=== PATIENT | female | born 1990 | race Caucasian/White ===

== ENCOUNTER 2025-01-08 05:42 | Emergency (ER) | payer SELFPAY ==
[~2025-01-08] VITALS: Ht 162.6 cm; Wt 82.0 kg
[2025-01-08 05:43] VITALS: O2SAT 100
[2025-01-08 06:35] LABS: CREATININE 0.8 mg/dL (0.6-1.0); UREA NITROGEN BLOOD 10 mg/dL (9-23)
[2025-01-08 06:37] LABS: ASPARTATE AMINOTRANSFERASE 47 IU/L (<34)
[2025-01-08 06:38] LABS: BASOPHILS % 0.5 % (0.0-2.0); BILIRUBIN DIRECT 0.1 mg/dL (<=3.0); BILIRUBIN TOTAL 0.4 mg/dL (0.1-1.0); EOSINOPHILS % 0.5 % (0.0-5.0); HEMATOCRIT. 40.5 % (36.0-48.0); HEMOGLOBIN. 13.7 g/dL (12.0-16.0); LYMPHOCYTES % 18.3 % (20.0-50.0); MEAN PLATELET VOLUME 7.7 fl (7.4-10.4); MONOCYTES % 3.8 % (2.0-8.0); NEUTROPHILS % 76.9 % (40.0-76.0); PLATELET 336 x1000/uL (130-400); PROTEIN TOTAL 7.2 g/dL (6.0-8.3); RED BLOOD CELL COUNT 4.02 mill/uL (4.2-5.4); RED CELL DISTRIBUTION WIDTH 12.7 % (11.6-14.6)
[2025-01-08] MEDS: SODIUM CHLORIDE 0.9% 1,000 ML IV ONE (08:01)
[2025-01-08 08:04] VITALS: TEMP 37.3
[2025-01-08 12:05] VITALS: BP 114/78; PULSE 79; RESP 15; O2SAT 99
== END 2025-01-08 12:09 | disposition home or self-care (01) ==
LOC: ER 05:42 → CMPBEDREQ 12:22
DX: F10.129 Alcohol abuse with intoxication, unspecified (principal); Z79.899 Other long term (current) drug therapy; Y90.7 Blood alcohol level of 200-239 mg/100 ml
CPT/HCPCS: 80076; 80048; 80320; 82140; 83690; 83735; 85025; 36415; 96360; 96361; 99285; J7030; Z7610; G0480

== ENCOUNTER 2025-01-17 04:25 | Inpatient (IN) | payer SELFPAY ==
[~2025-01-17] VITALS: Ht 160 cm; Wt 91.0 kg
[2025-01-17 04:29] VITALS: O2SAT 98
[2025-01-17 06:10] LABS: BASOPHILS % 0.6 % (0.0-2.0); EOSINOPHILS % 1.8 % (0.0-5.0); HEMATOCRIT. 40.3 % (36.0-48.0); HEMOGLOBIN. 13.6 g/dL (12.0-16.0); LYMPHOCYTES % 35.8 % (20.0-50.0); MEAN PLATELET VOLUME 7.8 fl (7.4-10.4); MONOCYTES % 8.7 % (2.0-8.0); NEUTROPHILS % 53.1 % (40.0-76.0); PLATELET 358 x1000/uL (130-400); RED BLOOD CELL COUNT 4.03 mill/uL (4.2-5.4); RED CELL DISTRIBUTION WIDTH 12.9 % (11.6-14.6)
[2025-01-17 06:20] LABS: CREATININE 0.7 mg/dL (0.6-1.0); UREA NITROGEN BLOOD 8 mg/dL (9-23)
[2025-01-17 06:22] LABS: HCG SCREEN NEGATIVE
[2025-01-17 07:17] LABS: *AMPHETAMINES SCREEN URINE PRESUMPTIVE POSITIVE (NEGATIVE)
[2025-01-17 07:18] LABS: *BARBITURATES SCREEN URINE NEGATIVE (NEGATIVE); *BENZODIAZEPINES SCREEN URINE NEGATIVE (NEGATIVE); *COCAINE SCREEN URINE NEGATIVE (NEGATIVE); CANNABINOID URINE SCREEN PRESUMPTIVE POSITIVE (NEGATIVE); ECSTASY MDMA SCREEN URINE NEGATIVE (NEGATIVE); METHADONE URINE SCREEN NEGATIVE (NEGATIVE); OPIATES URINE SCREEN NEGATIVE (NEGATIVE); PHENCYCLIDINE URINE SCREEN NEGATIVE (NEGATIVE)
[2025-01-17] MEDS ORDERED: ACETAMINOPHEN 325MG TABLET PO PRN ×2 (08:15)
[2025-01-17] MEDS ORDERED: IPRATROPIUM/ALBUTEROL 0.5-3(2.5)MG/3ML NEB HHN PRN (08:15)
[2025-01-17] MEDS ORDERED: ONDANSETRON HCL 4MG/2ML INJ IV PRN (08:15)
[2025-01-17 08:24] LABS: CLARITY URINE CLEAR (CLEAR); COLOR URINE YELLOW (YELLOW); GLUCOSE URINE NEGATIVE (NEGATIVE); KETONES URINE NEGATIVE (NEGATIVE); LEUKOCYTE ESTERASE URINE NEGATIVE (NEGATIVE); NITRITE URINE NEGATIVE (NEGATIVE); OCCULT BLOOD URINE NEGATIVE (NEGATIVE); PH URINE 5.0 (4.5-8.0); PROTEIN URINE NEGATIVE (NEGATIVE); SPECIFIC GRAVITY URINE 1.009 (1.005-1.030); UROBILINOGEN URINE 0.2 E.U./dL (0.2-1.0)
[2025-01-17] MEDS ORDERED: LORAZEPAM 2MG/ML UD SYRINGE IV PRN ×2 (08:30)
[2025-01-17] MEDS ORDERED: DEXT 5%/0.9% NACL 1,000 ML IV SCH ×2 (08:45→10:00)
[2025-01-17 09:31] LABS: PHOSPHORUS 3.9 mg/dL (2.5-4.9)
[2025-01-17] MEDS: FOLIC ACID 1MG TABLET PO SCH (09:48)
[2025-01-17] MEDS: THIAMINE HCL 100MG TABLET PO SCH (09:48)
[2025-01-17] MEDS: POTASSIUM CHLORIDE 20MEQ/PACKET PO NR (09:48)
[2025-01-17] MEDS: PANTOPRAZOLE SODIUM 40 MG/VIAL IV SCH (09:48)
[2025-01-17] MEDS ORDERED: MVI, ADULT NO.1 10 ML, FOLIC ACID 1 MG, THIAMINE HCL 100 MG in SODIUM CHLORIDE 0.9% 1,0... IV NR (10:00)
[2025-01-17] MEDS ORDERED: FOLIC ACID 1 MG, THIAMINE HCL 100 MG, MVI, ADULT NO.1 10 ML in DEXTROSE 5% WATER 1,000 ML IV ONE (10:00)
[2025-01-17 10:16] VITALS: BP 101/54; PULSE 78; RESP 16; TEMP 36.6; O2SAT 98
[2025-01-17] MEDS ORDERED: SODIUM CHLORIDE 0.45% 500 ML IV ONE (10:30)
== END 2025-01-17 11:51 | disposition left against medical advice (07) | DRG 52 ==
LOC: ER 04:25 → EDBEDREQ 06:29 → 5WST 06:54 → EDBEDREQ 06:58 → EDBEDREQTM 06:58
PROVIDERS: ADMIT Hospitalist; ATTEND Hospitalist
DX: G92.9 Unspecified toxic encephalopathy (principal); F10.129 Alcohol abuse with intoxication, unspecified; F15.10 Other stimulant abuse, uncomplicated; F17.210 Nicotine dependence, cigarettes, uncomplicated; F41.9 Anxiety disorder, unspecified; Y90.8 Blood alcohol level of 240 mg/100 ml or more; Z79.899 Other long term (current) drug therapy
CPT/HCPCS: 36415; 71045; 80048; 80305; 80320; 81003; 82550; 83605; 83735; 84100; 84703; 85025; 93005; 99285; A4606; J2470; J3411; J3490; J7030; J7070; G0480